=== PATIENT | female | born 1965 | race Caucasian/White ===

== ENCOUNTER 2023-10-04 17:46 | Emergency (ER) | payer BC ==
[2023-10-04 18:05] VITALS: BP 144/93; PULSE 53; RESP 16; TEMP 99.6; BMI 27.4
[2023-10-04 19:03] LABS: HEMATOCRIT 45.5 % (32.4-45.2); HEMOGLOBIN 14.9 G/dL (10.7-15.3); MCH 31.4 pg (25.7-33.7); MCHC 32.7 g/dl (32.0-36.0); MEAN CELL VOLUME 95.9 fl (80-96); MEAN PLT VOLUME 7.9 fl (7.5-11.1); RBC 4.74 10^6/uL (3.60-5.2); RDW 13.7 % (11.6-15.6); WHITE BLOOD COUNT 8.5 10^3/uL (4.0-10.8)
[2023-10-04 19:10] LABS: PLATELET ESTIMATE ADEQUATE
[2023-10-04 19:25] LABS: BILIRUBIN,TOTAL 0.5 mg/dl (0.2-1); CALCIUM 9.8 mg/dl (8.5-10.1); CREATININE 0.8 mg/dl (0.6-1.3); POTASSIUM 3.9 mmol/L (3.5-5.1); TOT PROT 7.3 g/dl (6.4-8.2)
[2023-10-04] MEDS ORDERED: KETOROLAC TROMETHAMINE 30 MG/1 ML VIAL ONE (20:38)
[2023-10-04] MEDS: KETOROLAC TROMETHAMINE 30 MG/1 ML VIAL IVPUSH ONE (20:46)
[2023-10-04 21:00] LABS: LACTIC ACID 2.7 mmol/L (0.4-2.0)
== END 2023-10-04 23:21 | disposition home or self-care (01) ==
LOC: FER 17:46
PROC: 3E0333Z Introduction of Anti-inflammatory into Peripheral Vein, Percutaneous Approach (ICD-10-PCS; principal; 2023-10-04)
DX: R10.32 Left lower quadrant pain (principal); K38.8 Other specified diseases of appendix
CPT/HCPCS: 36415; 74177-TC; 80053; 81003; 81015; 83605; 83690; 85027; 87086; 99285-25; Q9967